=== PATIENT | female | born 1935 | race Caucasian/White ===

== ENCOUNTER → 2017-12-16 | Outpatient (CLI) | payer MEDICARE, OTHER ==
[~2017-12-16] MED LIST: ARTHROTEC EC 71 EAC1; AZITHROMYCIN 2250 MG PO; BENADRYL25 MG PO; BIOTIN1000 MCG PO; CALCIUM 500 +1 EAC5 PO; CHLOR-TABLET4 MG; DOXYCYCLINE 10100 M1 PO; ETHAMBUTOL HCL100 MG; EVENING PRIMR1000 MG PO; FISH OIL 1,0001 EAC5; FLEXERIL PO; FLONASE 0.05%50 MCG; LEVAQUIN 500 M500 M2 PO; LEVOXYL88 MCG PO; MULTIVITAMINS PO; NEXIUM 40 MG CA40 M1; OMEPRAZOLE20 M2 PO; PROCARDIA XL30 MG PO; RIFAMPIN 300 M300 MG PO; TRAMADOL 50 MG50 MG PO; TYLENOL EXTRA500 MG PO
== END ==
LOC: M.LAB 12-10 12:30 → M.MRI 12-10 13:30 → M.LAB 15:30 → M.MRI 16:30
PROVIDERS: Surgery
DX: M27.8 Other specified diseases of jaws (principal)

== ENCOUNTER → 2018-01-10 | Outpatient (CLI) | payer MEDICARE, OTHER | LOC: M.RAD 16:00 | DX: J84.10 Pulmonary fibrosis, unspecified (principal); M47.9 Spondylosis, unspecified; Z91.81 History of falling ==

== ENCOUNTER → 2019-06-01 | Outpatient (CLI) | payer MEDICARE, OTHER | LOC: M.ULTRA 05-14 15:09 → M.RAD 05-18 11:30 → M.ULTRA 10:30 | DX: M54.18 Radiculopathy, sacral and sacrococcygeal region (principal); M47.816 Spondylosis without myelopathy or radiculopathy, lumbar region; I70.0 Atherosclerosis of aorta; M41.86 Other forms of scoliosis, lumbar region; M48.061 Spinal stenosis, lumbar region without neurogenic claudication; G89.29 Other chronic pain; Z88.8 Allergy status to other drugs, medicaments and biological substances; Z88.0 Allergy status to penicillin ==

== ENCOUNTER → 2019-06-29 | Outpatient (CLI) | payer MEDICARE, OTHER | LOC: M.RAD 12:43 | DX: M47.26 Other spondylosis with radiculopathy, lumbar region (principal); Z88.2 Allergy status to sulfonamides; Z88.0 Allergy status to penicillin; Z88.5 Allergy status to narcotic agent; Z88.7 Allergy status to serum and vaccine ==

== ENCOUNTER 2019-11-11 10:54 | Emergency (ER) | payer MEDICARE, OTHER ==
[~2019-11-11] VITALS: Ht 160 cm; Wt 59.0 kg
[2019-11-11 11:53] LABS: CALCIUM 9.2 mg/dL (8.5-10.1); CREATININE 1.1 mg/dL (0.6-1.3); POTASSIUM 3.4 mmol/L (3.5-5.1)
[2019-11-11 12:52] LABS: ABSOLUTE BASOPHILS 0.1 thou/uL (0.0-0.2); ABSOLUTE EOSINOPHILS 0.1 thou/uL (0.0-0.7); ABSOLUTE LYMPHOCYTES 1.7 thou/uL (0.8-5.3); ABSOLUTE MONOCYTES 0.5 thou/uL (0.0-1.2); BASOPHILS 0.9 %; EOSINOPHILS 1.4 %; HEMATOCRIT 35.9 % (37.0-47.0); HEMOGLOBIN 12.1 gm/dL (12.0-15.0); LYMPHOCYTES 20.6 %; MCH 31.3 pg (26.0-34.0); MCHC 33.6 g/dL (28.0-37.0); MCV 93.1 fL (80.0-100.0); MONOCYTES 5.5 %; MPV 8.6 fl. (7.2-11.1); NUCLEATED RBCS 0 /100WBC; PLATELET COUNT* 451 thou/uL (150-400); POLYS 71.6 %; RBC 3.85 mil/uL (4.20-5.00); RDW-CV 15.1 % (10.5-14.5); WBC 8.4 thou/uL (4.0-11.0)
[2019-11-11 18:38] VITALS: BP 141/80
== END 2019-11-11 18:39 | disposition home or self-care (01) ==
LOC: M.ERS 10:54
PROVIDERS: Emergency Medicine Emergency Medical Services
DX: M27.2 Inflammatory conditions of jaws (principal); Z98.890 Other specified postprocedural states; Z85.810 Personal history of malignant neoplasm of tongue; Z88.5 Allergy status to narcotic agent; Z88.6 Allergy status to analgesic agent; Z88.1 Allergy status to other antibiotic agents; Z88.0 Allergy status to penicillin

== ENCOUNTER 2019-12-28 09:48 | Emergency (ER) | payer MEDICARE, OTHER ==
[~2019-12-28] VITALS: Ht 160 cm; Wt 46.7 kg
[2019-12-28 11:02] LABS: ABSOLUTE BASOPHILS 0.1 thou/uL (0.0-0.2); ABSOLUTE EOSINOPHILS 0.1 thou/uL (0.0-0.7); ABSOLUTE LYMPHOCYTES 1.2 thou/uL (0.8-5.3); ABSOLUTE MONOCYTES 0.5 thou/uL (0.0-1.2); ABSOLUTE NEUTROPHILS 5.7 thou/uL (1.6-8.1); EOSINOPHILS 1.3 %; HEMATOCRIT 36.2 % (37.0-47.0); HEMOGLOBIN 11.9 gm/dL (12.0-15.0); LYMPHOCYTES 15.9 %; MCH 30.4 pg (26.0-34.0); MCHC 32.9 g/dL (28.0-37.0); MCV 92.5 fL (80.0-100.0); MONOCYTES 6.6 %; MPV 8.2 fl. (7.2-11.1); NUCLEATED RBCS 0 /100WBC; PLATELET COUNT* 383 thou/uL (150-400); POLYS 75.2 %; RBC 3.91 mil/uL (4.20-5.00); RDW-CV 15.7 % (10.5-14.5); WBC 7.6 thou/uL (4.0-11.0)
[2019-12-28 11:13] LABS: CALCIUM 9.2 mg/dL (8.5-10.1); CREATININE 0.9 mg/dL (0.6-1.3); POTASSIUM 3.7 mmol/L (3.5-5.1)
[2019-12-28 11:18] LABS: ALBUMIN 3.3 g/dL (3.4-5.0); TOTAL BILIRUBIN 0.4 mg/dL (<0.1-1.0); TOTAL PROTEIN 6.5 g/dL (6.4-8.2)
[2019-12-28 13:04] VITALS: BP 139/38
--- NOTE | 2019-12-28 16:24 | EKG ---
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: : 1935 Requested By: Fifi Mckinney Order Number: [id number] MD: Jimmy Desai Measurements Intervals [place] Rate: 57 P: 90 UT: 189 QRS: 42 QRSD: 91 T: 45 QT: 452 QTc: 440 Interpretive Statements Sinus rhythm Abnormal R-wave progression, early transition Compared to ECG 07/02/2017 10:49:51 No significant changes Electronically Signed On 12-28-2019 16:23:33 CDT by Jimmy Desai [email or web address] <ELECTRONICALLY SIGNED> By: Jimmy Desai MD, [facility] 12/28/19 1623 1224 1224 Jimmy Desai MD, [facility] /EPI
== END 2019-12-28 13:05 | disposition home or self-care (01) ==
LOC: M.ERS 09:48
PROVIDERS: Nurse Practitioner Family
DX: R22.0 Localized swelling, mass and lump, head (principal); Z88.5 Allergy status to narcotic agent; Z88.0 Allergy status to penicillin; Z88.6 Allergy status to analgesic agent; Z88.1 Allergy status to other antibiotic agents; Z88.8 Allergy status to other drugs, medicaments and biological substances

== ENCOUNTER 2020-03-15 14:54 | Emergency (ER) | payer MEDICARE, OTHER ==
[~2020-03-15] VITALS: Ht 157.5 cm; Wt 47.6 kg
[2020-03-15 15:34] LABS: ABSOLUTE EOSINOPHILS 0.1 thou/uL (0.0-0.7); ABSOLUTE LYMPHOCYTES 1.7 thou/uL (0.8-5.3); ABSOLUTE MONOCYTES 0.3 thou/uL (0.0-1.2); ABSOLUTE NEUTROPHILS 6.8 thou/uL (1.6-8.1); BASOPHILS 0.2 %; EOSINOPHILS 0.6 %; HEMATOCRIT 38.3 % (37.0-47.0); HEMOGLOBIN 12.9 gm/dL (12.0-15.0); LYMPHOCYTES 19.2 %; MCH 31.7 pg (26.0-34.0); MCHC 33.7 g/dL (28.0-37.0); MCV 94.3 fL (80.0-100.0); MONOCYTES 3.8 %; MPV 7.7 fl. (7.2-11.1); NUCLEATED RBCS 0 /100WBC; PLATELET COUNT* 465 thou/uL (150-400); POLYS 76.2 %; RBC 4.06 mil/uL (4.20-5.00); RDW-CV 14.9 % (10.5-14.5); WBC 8.9 thou/uL (4.0-11.0)
[2020-03-15 15:42] LABS: CALCIUM 9.6 mg/dL (8.5-10.1); CREATININE 1.4 mg/dL (0.6-1.3); POTASSIUM 3.3 mmol/L (3.5-5.1)
[2020-03-15 15:43] LABS: APTT 27.3 Seconds (25.0-31.3); INR 1.1; PROTIME 11.1 Seconds (9.20-11.50)
[2020-03-15 15:53] LABS: TOTAL BILIRUBIN 0.6 mg/dL (<0.1-1.0); TOTAL PROTEIN 8.4 g/dL (6.4-8.2)
[2020-03-15 17:07] VITALS: BP 142/50
--- NOTE | 2020-03-16 10:13 | EKG ---
[place] [address] ELECTROCARDIOGRAM REPORT Name: DARIUS BRADEN Room: [facility]#: [id number] Admission: 03/15/20 Attend Phys: Discharge: 03/15/20 Date of : 31 Date of Service: 03/15/20 1525 Report #: [id number] THIS REPORT FOR: //name// [facility] ED Test Date: 2020-03-15 Test Time: 15:25:36 Pat Name: DARIUS BRADEN Department: Room: Gender: Sports Physician: [facility] : 1935 Requested By: Uziel Jade Order Number: [id number] MD: Jimmy Desai Measurements Intervals [place] Rate: 52 P: 80 [place]: 198 QRS: 53 QRSD: 82 T: 35 QT: 554 QTc: 516 Interpretive Statements Sinus rhythm Borderline T abnormalities, anterior leads Prolonged QT interval Compared to ECG 12/28/2019 12:24:24 Prolonged QT interval now present Electronically Signed On 03-16-2020 10:10:54 CDT by Jimmy Desai [email or web address] <ELECTRONICALLY SIGNED> By: Jimmy Desai MD, FAC 03/16/20 1010 1525 1525 Jimmy Desai MD, [facility] /EPI
== END 2020-03-15 17:11 | disposition home or self-care (01) ==
LOC: M.ERS 14:54
PROVIDERS: Family Medicine
DX: R41.82 Altered mental status, unspecified (principal); R42 Dizziness and giddiness; F03.90 Unspecified dementia, unspecified severity, without behavioral disturbance, psychotic disturbance, mood disturbance, and anxiety; Z88.5 Allergy status to narcotic agent; Z88.0 Allergy status to penicillin; Z88.1 Allergy status to other antibiotic agents; Z88.8 Allergy status to other drugs, medicaments and biological substances; Z79.899 Other long term (current) drug therapy; Z98.42 Cataract extraction status, left eye; Z98.41 Cataract extraction status, right eye

== ENCOUNTER 2020-08-21 19:08 | Inpatient (IN) | payer MEDICARE, OTHER ==
[~2020-08-21] VITALS: Ht 152.4 cm; Wt 47.6 kg
[2020-08-21 19:23] VITALS: BP 147/51
[2020-08-21 19:40] LABS: HEMATOCRIT 33.5 % (37.0-47.0); MCH 30.7 pg (26.0-34.0); MCHC 32.7 g/dL (28.0-37.0); NUCLEATED RBCS 0 /100WBC; PLATELET COUNT* 591 thou/uL (150-400); RBC 3.57 mil/uL (4.20-5.00); RDW-CV 14.8 % (10.5-14.5); WBC 20.4 thou/uL (4.0-11.0)
[2020-08-21 19:49] LABS: CALCIUM 8.8 mg/dL (8.5-10.1); CREATININE 1.2 mg/dL (0.6-1.3); POTASSIUM 3.8 mmol/L (3.5-5.1)
[2020-08-21 19:53] LABS: ALBUMIN 2.5 g/dL (3.4-5.0); TOTAL BILIRUBIN 0.3 mg/dL (<0.1-1.0); TOTAL PROTEIN 7.4 g/dL (6.4-8.2)
[2020-08-21 20:04] LABS: ABSOLUTE LYMPHOCYTES 1.2 thou/uL (0.8-5.3); ABSOLUTE MONOCYTES 0.6 thou/uL (0.0-1.2); ABSOLUTE NEUTROPHILS 18.6 thou/uL (1.6-8.1); PLATELET ESTIMATE INCREASED
[2020-08-21 20:13] LABS: URINE BILIRUBIN NEGATIVE (Negative); URINE BLOOD NEGATIVE (Negative); URINE CLARITY CLEAR; URINE COLOR YELLOW; URINE GLUCOSE-RANDOM NEGATIVE (Negative); URINE KETONES NEGATIVE (Negative); URINE LEUKOCYTES-REFLEX NEGATIVE (Negative); URINE NITRITE-REFLEX NEGATIVE (Negative); URINE PROTEIN TRACE (Negative)
[2020-08-22] VITALS (7 sets, daily range): BP systolic 99–132; BP diastolic 35–54
[2020-08-22] MEDS ORDERED: CELEBREX 200 M200 M1 PO (02:33)
[2020-08-22] MEDS ORDERED: DOXYCYCLINE PO (02:34)
[2020-08-22] MEDS ORDERED: [UNRECOGNIZED DRUG - OTHER] (02:37)
[2020-08-23 05:12] LABS: HEMATOCRIT 31.3 % (37.0-47.0); HEMOGLOBIN 10.2 gm/dL (12.0-15.0); MCH 30.2 pg (26.0-34.0); MCHC 32.5 g/dL (28.0-37.0); MPV 6.8 fl. (7.2-11.1); RBC 3.36 mil/uL (4.20-5.00); RDW-CV 15.2 % (10.5-14.5); WBC 11.5 thou/uL (4.0-11.0)
[2020-08-23 05:45] LABS: ALBUMIN 1.9 g/dL (3.4-5.0); CALCIUM 8.6 mg/dL (8.5-10.1); CREATININE 0.9 mg/dL (0.6-1.3); POTASSIUM 3.9 mmol/L (3.5-5.1); TOTAL BILIRUBIN 0.4 mg/dL (<0.1-1.0); TOTAL PROTEIN 6.4 g/dL (6.4-8.2)
[2020-08-23 07:20] VITALS: BP 128/48
[2020-08-23 16:00] VITALS: BP 117/48
[2020-08-23 23:00] VITALS: BP 120/42
[2020-08-24 07:10] VITALS: BP 120/45
[2020-08-24 16:30] VITALS: BP 121/57
[2020-08-24 20:00] VITALS: BP 137/42
[2020-08-25 07:25] VITALS: BP 131/56
[2020-08-25 10:01] VITALS: BP 131/56
[2020-08-25] MEDS ORDERED: LEVOFLOXACIN500 MG PO (11:40)
[2020-08-25] MEDS ORDERED: VITAMIN D250 MC1 PO (11:41)
[2020-08-25 11:42] VITALS: BP 131/56
[2020-08-25 12:08] VITALS: BP 131/56
== END 2020-08-25 12:09 | disposition home or self-care (01) | DRG 871 ==
LOC: M.ERS 19:08 → M.TBA-ER 21:52 → M.3W 08-22 17:18
PROVIDERS: Internal Medicine; Personal Emergency Response Attendant; ADMIT Internal Medicine; ATTEND Internal Medicine
DX: A41.9 Sepsis, unspecified organism (principal); J15.6 Pneumonia due to other Gram-negative bacteria; J96.01 Acute respiratory failure with hypoxia; E43 Unspecified severe protein-calorie malnutrition; G93.41 Metabolic encephalopathy; M87.9 Osteonecrosis, unspecified; Z20.828 Contact with and (suspected) exposure to other viral communicable diseases; F03.90 Unspecified dementia, unspecified severity, without behavioral disturbance, psychotic disturbance, mood disturbance, and anxiety; R13.10 Dysphagia, unspecified; Z98.42 Cataract extraction status, left eye; Z98.41 Cataract extraction status, right eye; Z92.21 Personal history of antineoplastic chemotherapy; Z92.3 Personal history of irradiation; Z88.6 Allergy status to analgesic agent; Z88.0 Allergy status to penicillin; Z88.8 Allergy status to other drugs, medicaments and biological substances; Z87.891 Personal history of nicotine dependence; Z28.21 Immunization not carried out because of patient refusal; Z79.899 Other long term (current) drug therapy; Z68.20 Body mass index [BMI] 20.0-20.9, adult

== ENCOUNTER 2021-08-11 14:12 | Emergency (ER) | payer MEDICARE, OTHER ==
[~2021-08-11] VITALS: Ht 157.5 cm; Wt 45.4 kg
[~2021-08-11 14:12] MED LIST changes: +CELEBREX 200 M200 M1 PO; +DOXYCYCLINE PO; +LEVOFLOXACIN500 MG PO; +VITAMIN D250 MC1 PO; +[UNRECOGNIZED DRUG - OTHER]
--- NOTE | 2021-08-11 14:47 | EKG ---
[place] [address] ELECTROCARDIOGRAM REPORT Name: DARIUS BRADEN Room: [facility]#: [id number] Admission: Attend Phys: Discharge: Date of : 31 Date of Service: 08/11/21 1426 Report #: [id number] THIS REPORT FOR: //name// [facility] ED Test Date: 2021-08-11 Test Time: 14:26:53 Pat Name: DARIUS BRADEN Department: Room: Gender: F Rand Maker: : 1935 Requested By: Nuno Morgan Order Number: [id number] MD: Jimmy Desai Measurements Intervals [place] Rate: 59 P: 80 [place]: 209 QRS: 29 QRSD: 99 T: 64 QT: 455 QTc: 451 Interpretive Statements Sinus rhythm RSR' in V1 or V2, probably normal variant Baseline wander in lead(s) V1 Compared to ECG 03/15/2020 15:25:36 T-wave abnormality no longer present Prolonged QT interval no longer present Electronically Signed On 08-11-2021 14:47:41 CDT by Jimmy Desai [email or web address] <ELECTRONICALLY SIGNED> By: Jimmy Desai MD, FAC 08/11/21 1447 1426 1426 Jimmy Desai MD, [facility] /EPI
[2021-08-11 15:10] LABS: ABSOLUTE BASOPHILS 0.1 thou/uL (0.0-0.2); ABSOLUTE EOSINOPHILS 0.4 thou/uL (0.0-0.7); ABSOLUTE LYMPHOCYTES 1.6 thou/uL (0.8-5.3); ABSOLUTE MONOCYTES 0.5 thou/uL (0.0-1.2); ABSOLUTE NEUTROPHILS 7.3 thou/uL (1.6-8.1); BASOPHILS 1.1 %; EOSINOPHILS 3.7 %; HEMATOCRIT 32.3 % (37.0-47.0); HEMOGLOBIN 10.3 gm/dL (12.0-15.0); LYMPHOCYTES 16.2 %; MCH 28.1 pg (26.0-34.0); MCV 87.7 fL (80.0-100.0); MPV 8.4 fl. (7.2-11.1); NUCLEATED RBCS 0 /100WBC; PLATELET COUNT* 462 thou/uL (150-400); RBC 3.68 mil/uL (4.20-5.00); RDW-CV 15.3 % (10.5-14.5); WBC 9.9 thou/uL (4.0-11.0)
[2021-08-11 15:19] LABS: CALCIUM 9.3 mg/dL (8.5-10.1); POTASSIUM 3.9 mmol/L (3.5-5.1)
[2021-08-11 15:23] LABS: ALBUMIN 3.2 g/dL (3.4-5.0); TOTAL BILIRUBIN 0.3 mg/dL (<0.1-1.0); TOTAL PROTEIN 7.3 g/dL (6.4-8.2)
[2021-08-11 21:30] VITALS: BP 142/69
== END 2021-08-11 21:30 | disposition still patient (30) ==
LOC: M.ERS 14:12
PROVIDERS: Emergency Medicine Emergency Medical Services
DX: S72.142A Displaced intertrochanteric fracture of left femur, initial encounter for closed fracture (principal); Z20.822 Contact with and (suspected) exposure to COVID-19; E03.9 Hypothyroidism, unspecified; M79.642 Pain in left hand; Z87.42 Personal history of other diseases of the female genital tract; Z98.890 Other specified postprocedural states; Z85.810 Personal history of malignant neoplasm of tongue; Z79.2 Long term (current) use of antibiotics; Z79.899 Other long term (current) drug therapy; Z88.5 Allergy status to narcotic agent; Z88.1 Allergy status to other antibiotic agents; Z88.0 Allergy status to penicillin; Z88.8 Allergy status to other drugs, medicaments and biological substances; Z91.041 Radiographic dye allergy status; W19.XXXA Unspecified fall, initial encounter; Y93.89 Activity, other specified; Y92.89 Other specified places as the place of occurrence of the external cause; Y99.8 Other external cause status